=== PATIENT | male | born 1975 | race Caucasian/White ===

== ENCOUNTER 2022-10-02 11:29 | Day surgery (SDC) | payer BC ==
[2022-10-01 11:45] LABS: Absolute Lymphocytes (CBC) 1.4 K/uL (0.7-4.9); Hematocrit 35.4 % (39.6-49.0); Lymphocytes % 17.1 % (15.3-44.8); MCV 85.4 fL (80-100); MPV 8.9 fL (7.6-11.3); RBC Red Blood Cell Count 4.15 M/uL (4.33-5.43)
[2022-10-01 12:16] LABS: Potassium 4.5 mEq/L (3.5-5.1)
[2022-10-02] MEDS ORDERED: NA CHLORIDE 0.9% 1,000 ML ONE ×2 (12:05→14:55)
[2022-10-02] MEDS ORDERED: LIDOCAINE 1% MPF 5 ML VIAL ONE (13:38)
[2022-10-02] MEDS ORDERED: EPINEPHRINE/PF 1 MG/ML AMP ONE (13:38)
[2022-10-02] MEDS ORDERED: MIDAZOLAM HCL 2 MG/2 ML INJ ONE (13:38)
[2022-10-02] MEDS ORDERED: FENTANYL CITR 100 MCG/2 ML ONE (13:38)
[2022-10-02] MEDS ORDERED: dexAMETHasone 10 MG/ML VIAL ONE (13:38)
[2022-10-02] MEDS ORDERED: ROPLVACAINE HCL 40 ML ONE (13:40)
[2022-10-02] MEDS ORDERED: BUPIVACAINE 0.25% PF 30 ML VIAL ONE (13:40)
[2022-10-02] MEDS ORDERED: LIDOCAINE 1% W/EPI 1:100,000 10 ML VIAL ONE (13:48)
[2022-10-02] MEDS ORDERED: LIDOCAINE 2% MPF 5 ML VIAL ONE (14:07)
[2022-10-02] MEDS ORDERED: propofoL 200 MG/20 ML VIAL IV ONE (14:07)
[2022-10-02] MEDS ORDERED: CLINDAMYCIN 600MG/D5W 50 ML IV ONE (14:30)
[2022-10-02] MEDS ORDERED: EPHEDRINE SULF 50 MG/ML VIAL ONE (14:46)
--- NOTE | 2022-10-02 15:02 | P.OP ---
Preoperative diagnosis: Osteomyelitis 2nd Toe of LEFT foot Postoperative diagnosis: Osteomyelitis 2nd Toe of LEFT foot Primary procedure: Amputation of 2nd toe of LEFT foot Anesthesia: GETA + Block + Local Estimated blood loss: <5cc Specimen: Toe + cultures Findings: osteomylitis of toe with abscess to proximal phalanx Complications: None Transferred to: Recovery Room Condition: Good
[2022-10-02 16:21] VITALS: BP 163/85; TEMP 97.6; O2SAT 95
--- NOTE | 2022-10-02 21:28 | OP ---
Date of Procedure: 10/02/2022 Surgeon: Cleve Gibson MD, Preoperative Diagnosis: Osteomyelitis to 2nd toe of the left foot. Postoperative Diagnosis: Osteomyelitis to 2nd toe of the left foot. Procedure Performed: Amputation of 2nd toe of the left foot. Anesthesia: General endotracheal plus block plus local with 0.25% Marcaine. Estimated Blood Loss: Less than 5 cc. Specimen: Toe to the metatarsophalangeal joint plus cultures. Findings: Osteomyelitis of the toe with abscess to proximal phalanx. Complications: None. The patient was transferred to recovery room in good condition. Procedure In Detail: After informed consent was obtained, the patient was brought to the operating r oom and prepped and draped in the usual sterile fashion. After adequate anesthesia was achieved, I m pallavi a curvilinear incision based on a dorsal toe flap down through subcutaneous tissues using a 15 bl pallavi. I then dissected circumferentially around to the metatarsophalangeal joint and removed the dist al phalanx after abscess material was noted to be emanating from this area and I sent it for cultures at this point. I then continued the dissection using a periosteal elevator and electrocautery with sharp dissection to separate the distal phalanx at this point. I then left the proximal phalanx in p lace as I dissected circumferentially around to remove the bone, which was found to have abscess trac magali along the side of it to almost the metatarsophalangeal joint. I the metatarsophalange al joint sharply and sent the proximal phalanx bone off for pathologic examination as well. I copiou sly irrigated the cavity at this point, and found that the dorsal flap was viable and as such, trimme d the dorsal flap to allow for flap closure at this point. After the area was copiously irrigated, h emostasis was achieved with electrocautery. There was minimal bleeding from the area. I then closed the deep plantar tissues using 3-0 Vicryl in interrupted fashion to cover the metatarsal head. At t his point, the flap was closed, based on the dorsal flap, using interrupted 3-0 nylon sutures and gabriel rile dressing placed over top. The patient tolerated the procedure without evidence of any complicat ion and transferred to PACU in good condition. All counts were correct at the end of the case. TK/MODL Voice ID: [id number] Report ID: [id number]
--- NOTE | 2022-10-03 07:13 | EKG ---
Test Date: 2022-10-01 Test Time: 11:21:18 Pool Technician: TAYLOR MEASUREMENT RESULTS: Intervals: Rate: 74 VT: 196 QRSD: 94 QT: 386 QTc: 428 [place]: P: 74 VT: 196 QRS: 74 T: 70 INTERPRETIVE STATEMENTS: Normal sinus rhythm Normal ECG Compared to ECG 02/14/2015 16:16:25 No significant changes Electronically Signed On 10-03-22 07:09:56 CDT by Louie Myles
== END 2022-10-02 16:28 | disposition home or self-care (01) ==
LOC: OR 11:29
PROVIDERS: ATTEND Surgery
PROC: 0Y6S0Z3 Detachment at Left 2nd Toe, Low, Open Approach (ICD-10-PCS; principal; 2022-10-02 14:00)
DX: M86.8X7 Other osteomyelitis, ankle and foot (principal); B95.1 Streptococcus, group B, as the cause of diseases classified elsewhere
CPT/HCPCS: 93005; 87070; 85025; 80048; 36415; 87205; 82947 ×2; 88305; 88311; 87075; 87077; 87186; 28810; J2704; J0171; J2001 ×2; J2250; J3010; J1100; J7030 ×2